=== PATIENT | female | born 1995 | race Two or more races ===

== ENCOUNTER 2019-01-30 18:24 | Emergency (ER) | payer MEDICAID ==
[~2019-01-30] VITALS: Ht 162.6 cm; Wt 51.7 kg
[2019-01-30 18:27] VITALS: BP 127/82
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
--- NOTE | 2019-01-30 19:11 | NUR ---
ED Nurse Note: patient is alert and awake x3, ambulatory, slowed to answer questions from time to time.
--- NOTE | 2019-01-30 19:28 | NUR ---
HAND-OFF: Report given to Nika SALAZAR. patient's boy friend is by the bedside
--- NOTE | 2019-01-30 19:29 | NUR ---
ED Nurse Note: Received report from Sharifa/MARIE. Pt is A/OX 4. VSS, will continue to monitor.
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
[2019-01-30] MEDS ORDERED: TYLENOL EXTRA500 MG ORAL (20:47)
[2019-01-30] MEDS ORDERED: ABILIFY10 MG ORAL (21:10)
[2019-01-30 21:16] VITALS: BP 124/81
--- NOTE | 2019-01-30 21:16 | NUR ---
ER DISCHARGE NOTE: Patient is cleared to be discharged per Анна Ball/ JAVIER. Pt is A/O x 4 on room air with stable vital signs. Pt was given dc and prescription instructions and was able to verbalize understanding. Pt's ID band removed. Pt is able to ambulate with steady gait and pt took all belongings. Accompanied by her friend.
--- NOTE | 2019-01-31 09:04 | Diagnostic Imaging Report ---
Indication: Headache Technique: Contiguous 5 mm thick transaxial imaging of the head obtained in a Siem[employer] Sensation [address] scanner. Soft tissue and bone windows generated. Automatic Exposure Control was utilized. Total Dose length Product (DLP): 1290.[address] Dose Index Volume (CTDIvol): 70.38 mGy Comparison: none Findings: The size and configuration of the cortical sulci, basal cisterns, and ventricles are within normal limits for age. There is no mass effect, midline shift, or edema identified. There is no evidence of acute hemorrhage or abnormal intra-axial or extra-axial fluid collections. The bones and soft tissues are unremarkable. Impression: No mass effect, edema or acute bleed. The CT scanner at [facility] is accredited by the [employer] and the scans are performed using dose optimization techniques as appropriate to a performed exam including Automatic Exposure control.
== END 2019-01-30 21:16 | disposition home or self-care (01) ==
LOC: EMR 19:19
DX: F07.81 Postconcussional syndrome (principal); R45.86 Emotional lability
CPT/HCPCS: 70450; 80307; 81025; 99284